=== PATIENT | female | born 1965 | race Caucasian/White ===

== ENCOUNTER 2022-08-01 14:53 | Outpatient (CLI) | payer OTHER, SELFPAY ==
--- NOTE | 2022-08-01 14:40 | CRLHL7_ITS ---
For Patients: As a result of the Cures Act, medical imaging exams and procedure reports are released immediately into your electronic medical record. You may view this report before your referring provider. If you have questions, please contact your health care provider. BILATERAL SCREENING MAMMOGRAM WITH COMPUTER-AIDED DETECTION AND TOMOSYNTHESIS TECHNIQUE: CC and MLO views were obtained. These mammographic images have been obtained using full-field digital technique. These mammographic images were interpreted with the benefit of computer-aided detection. Breast Tomosynthesis was used in this interpretation. COMPARISON FILM: 07/23/21, 06/01/20, 03/15/19. FINDINGS: There are scattered areas of fibroglandular density IMPRESSION: There is no radiographic evidence for malignancy. ASSESSMENT: BI-RADS Category 2: Benign RECOMMENDATION: Routine screening mammogram in 1 year. A lay language report of this examination will be provided to the patient. Shant Swan M.D. Diagnostic Radiologist [email or web address] [place]/lucy / be/Dictated by: Shant Swan MD @ 08/04/2022 8:55:00 AM (Electronically Signed)
== END 2022-08-01 14:54 | disposition home or self-care (01) ==
LOC: MAMMO 14:54
PROVIDERS: PCP Family Medicine; Visit Provider Family Medicine
DX: Z12.31 Encounter for screening mammogram for malignant neoplasm of breast (principal)
CPT/HCPCS: 77063; 77067

== ENCOUNTER 2022-08-11 16:49 | Outpatient (CLI) | payer OTHER, SELFPAY ==
--- NOTE | 2022-08-11 17:00 | CRLHL7_ITS ---
For Patients: As a result of the Century Cures Act, medical imaging exams and procedure reports are released immediately into your electronic medical record. You may view this report before your referring provider. If you have questions, please contact your health care provider. INDICATION: Left-sided pelvic pain COMPARISON: none TECHNIQUE: 2D fairchild scale and color Doppler images were acquired of the pelvis using a transabdominal and transvaginal approach. FINDINGS: Sonographic images demonstrate a normal size and smooth outer contour of the uterus. Uterus measures 5.7 cm in length by 2.4 cm in AP diameter by 3.3 cm in transverse dimension. A small posterior intramural fibroid is present within the lower uterine segment measuring 1.1 x 0.8 x 1.1 cm. The endometrial lining appears normal and measures 2 mm in composite thickness. The right ovary measures 2.7 x 1.5 x 1.7 cm in size and the left ovary measures 2.5 x 0.9 x 1.2 cm. The ovaries demonstrate normal arterial and venous blood flow on color Doppler analysis. There are no suspicious fluid collections within the cul-de-sac. IMPRESSION: Small intramural fibroid measuring 1.1 cm. Ovaries normal. No excess pelvic free fluid or adnexal mass. Dictated by Shant Swan MD @ 08/12/2022 6:45:45 AM (Electronically Signed)
== END 2022-08-11 16:50 | disposition home or self-care (01) ==
LOC: US 16:50
PROVIDERS: PCP Family Medicine; Visit Provider Obstetrics & Gynecology
DX: R10.2 Pelvic and perineal pain (principal); D25.1 Intramural leiomyoma of uterus
CPT/HCPCS: 76830; 76856

== ENCOUNTER 2023-08-03 15:07 | Outpatient (CLI) | payer OTHER, SELFPAY ==
--- NOTE | 2023-08-03 15:20 | MM_ITS ---
Patient: SCOTT PRO Facility:?[facility] Patient ID:?[id number] Site Patient ID:?[id number]. Site :?[id number] Study:?XRay-Breast Bilateral 3D W/CAD-08/03/2023 3:39:27 PM Ordering Physician:Kusum Final Report: BILATERAL SCREENING MAMMOGRAM WITH COMPUTER-AIDED DETECTION AND TOMOSYNTHESIS TECHNIQUE: CC and MLO views were obtained. These mammographic images have been obtained using full-field digital technique. These mammographic images were interpreted with the benefit of computer-aided detection. Breast Tomosynthesis was used in this interpretation. COMPARISON FILM: 08/01/22, 07/23/21, 06/01/20. FINDINGS: There are scattered areas of fibroglandular density IMPRESSION: There is no radiographic evidence for malignancy. ASSESSMENT: BI-RADS Category 1: Negative RECOMMENDATION: Routine screening mammogram in 1 year. A lay language report of this examination will be provided to the patient. Shant Swan M.D. Diagnostic Radiologist [email or web address] [place]/lucy / be/Dictated by: Shant Swan MD @ 08/04/2023 11:35:00 AM Signed by:?Shant Swan MD @08/04/2023 4:35:21 PM (Electronic Signature)
== END 2023-08-03 15:08 | disposition home or self-care (01) ==
LOC: MAMMO 15:08
PROVIDERS: PCP Family Medicine; Visit Provider Family Medicine
DX: Z12.31 Encounter for screening mammogram for malignant neoplasm of breast (principal)
CPT/HCPCS: 77063; 77067

== ENCOUNTER 2024-03-03 07:47 | Outpatient (CLI) | payer OTHER, SELFPAY ==
--- NOTE | 2024-03-03 09:11 | W.ANESCHARGE ---
Anesthesia Charges Start Date/Time Anesthesia Start Date: 03/03/24 Anesthesia Start Time: 08:28 Stop Date/Time Anesthesia Stop Date: 03/03/24 Anesthesia Stop Time: 09:07
--- NOTE | 2024-03-03 09:20 | W.ANESCHARGE ---
Anesthesia Charges Start Date/Time Anesthesia Start Date: 03/03/24 Anesthesia Start Time: 08:28 Stop Date/Time Anesthesia Stop Date: 03/03/24 Anesthesia Stop Time: 09:07
== END 2024-03-03 07:48 | disposition home or self-care (01) ==
LOC: OP CLINIC 07:47
PROVIDERS: PCP Family Medicine; Visit Provider Surgery
DX: D12.2 Benign neoplasm of ascending colon (principal); D12.3 Benign neoplasm of transverse colon; D12.4 Benign neoplasm of descending colon; Z86.0101 Personal history of adenomatous and serrated colon polyps
CPT/HCPCS: 00811; 45385; 88305; J2704

== ENCOUNTER 2024-03-07 16:20 | Outpatient (RCR) | payer OTHER, SELFPAY | END 2024-06-27 16:24 | disposition home or self-care (01) | PROVIDERS: PCP Family Medicine; Visit Provider Registered Nurse | DX: N94.2 Vaginismus (principal); R27.8 Other lack of coordination; Z51.89 Encounter for other specified aftercare | CPT/HCPCS: 97110; 97161; 97535 ==

== ENCOUNTER 2024-12-15 10:37 | Outpatient (CLI) | payer OTHER, SELFPAY ==
--- NOTE | 2024-12-15 10:45 | CRLHL7_ITS ---
For Patients: As a result of the Century Cures Act, medical imaging exams and procedure reports are released immediately into your electronic medical record. You may view this report before your referring provider. If you have questions, please contact your health care provider. INDICATION: BILATERAL SCREENING MAMMOGRAM, ASYMPTOMATIC 59 Y/O FEMALE COMPARISON: 08/03/2023, 08/01/2022, 07/23/2021 TECHNIQUE: Digital mammogram in CC and MLO projections including computer-aided detection (CAD) and tomosynthesis. BREAST COMPOSITION: There are scattered areas of fibroglandular density. FINDINGS: No suspicious findings. ASSESSMENT: BI-RADS 1 Negative RECOMMENDATION: Annual screening mammogram. A lay language report of this examination will be provided to the patient. Dictated by: Piper Camargo MD @ 12/17/2024 14:24:28 (Electronically Signed)
== END 2024-12-15 10:38 | disposition home or self-care (01) ==
LOC: MAMMO 10:37
PROVIDERS: PCP Family Medicine; Visit Provider Registered Nurse
DX: Z12.31 Encounter for screening mammogram for malignant neoplasm of breast (principal)
CPT/HCPCS: 77063; 77067